=== PATIENT | female | born 1965 | race Caucasian/White ===

== ENCOUNTER 2023-07-11 15:47 | Inpatient (IN) | payer OTHER ==
[~2023-07-11] VITALS: Ht 172.7 cm; Wt 72.1 kg
[2023-07-11] MEDS: HYDROCODONE/APAP 10-325 MG TABLET PO PRN (18:30)
[2023-07-11 19:09] VITALS: BP 124/81; TEMP 98; O2SAT 98
[2023-07-11 20:00] VITALS: BP 156/71; TEMP 98.4; O2SAT 96
[2023-07-11] MEDS: ATORVASTATIN 40 MG TABLET PO SCH (21:23)
[2023-07-12 04:00] VITALS: BP 146/77; TEMP 98.7; O2SAT 99
[2023-07-12 07:15] LABS: BASOPHILS % (AUTO) 0.5 % (0.0-2.0); EOSINOPHILS # (AUTO) 0.5 K/uL (0.0-0.7); EOSINOPHILS % (AUTO) 5.7 % (0.0-7.0); HEMATOCRIT 33.2 % (31.2-41.9); HEMOGLOBIN 11.3 g/dL (10.9-14.3); LYMPHOCYTES # (AUTO) 1.3 K/uL (0.8-4.8); LYMPHOCYTES % (AUTO) 15.4 % (20.5-51.5); MEAN CORPUSCULAR HEMOGLOBIN 28.4 uug (24.7-32.8); MEAN CORPUSCULAR HGB CONC 34 g/dL (32.3-35.6); MEAN CORPUSCULAR VOLUME 83.4 fL (75.5-95.3); MONOCYTES # (AUTO) 0.6 K/uL (0.1-1.30); MONOCYTES % (AUTO) 7.4 % (0.0-11.0); NEUTROPHILS # (AUTO) 5.8 K/uL (1.8-8.9); PLATELET COUNT (AUTO) 409 K/uL (179-408); RED BLOOD CELL COUNT(AUTO) 3.97 MIL/uL (3.63-4.92); RED CELL DISTRIBUTION WIDTH 14.8 % (12.3-17.7); WHITE BLOOD COUNT (AUTO) 8.2 K/uL (3.8-11.8)
[2023-07-12 07:24] LABS: CALCIUM 8.8 mg/dL (8.5-10.1); CREATININE 0.7 mg/dL (0.6-1.3); POTASSIUM 3.9 mmol/L (3.5-5.1)
[2023-07-12 07:39] LABS: DIFFERENTIAL COMMENT 1
[2023-07-12] MEDS ORDERED: ATOR80TA PO (10:11)
[2023-07-12] MEDS ORDERED: AMLO-212 PO (10:11)
[2023-07-12] MEDS: MIRALAX 17 GM POWD.PACK PO SCH (10:19)
[2023-07-12 11:09] VITALS: BP 141/74; TEMP 98.3; O2SAT 96
[2023-07-12 16:41] VITALS: BP 137/71; TEMP 98.5; O2SAT 98
[2023-07-12] MEDS: ENOXAPARIN SODIUM 40 MG/0.4 ML DISP.SYRIN SQ SCH (17:24)
[2023-07-12 20:16] VITALS: BP 122/72; TEMP 99.8; O2SAT 98
[2023-07-12] MEDS ORDERED: ATORVASTATIN 40 MG TABLET PO SCH (21:00)
[2023-07-13 06:13] VITALS: BP 132/75; TEMP 98.3; O2SAT 97
[2023-07-13 08:00] VITALS: BP 128/70; TEMP 98.1; O2SAT 97
[2023-07-13 16:00] VITALS: BP 140/72; TEMP 98.3; O2SAT 97
[2023-07-14 05:12] VITALS: BP 130/70; TEMP 98.2; O2SAT 100
[2023-07-14] MEDS ORDERED: IBUPROFEN 600 MG TABLET PO PRN (13:15)
[2023-07-14] MEDS ORDERED: ACETAMINOPHEN 325 MG TABLET PO PRN (13:15)
[2023-07-14 16:25] VITALS: BP 115/66; TEMP 98.9; O2SAT 98
== END 2023-07-14 16:45 | disposition home health service (06) | DRG 560 ==
PROVIDERS: ADMIT Physical Medicine & Rehabilitation Pain Medicine; ATTEND Physical Medicine & Rehabilitation Pain Medicine
DX: Z47.1 Aftercare following joint replacement surgery (principal); E44.1 Mild protein-calorie malnutrition; R65.10 Systemic inflammatory response syndrome (SIRS) of non-infectious origin without acute organ dysfunction; E78.5 Hyperlipidemia, unspecified; E88.09 Other disorders of plasma-protein metabolism, not elsewhere classified; I10 Essential (primary) hypertension; Z91.81 History of falling; Z96.641 Presence of right artificial hip joint
CPT/HCPCS: 36415; 73502; 85025; 97535-GO-CO; J1650